=== PATIENT | female | born 1950 ===

== ENCOUNTER 2024-03-09 20:55 | Emergency (ER) | payer MEDICARE, OTHER, SELFPAY ==
[2024-03-09] VITALS (8 sets, daily range): BP systolic 153–170; BP diastolic 73–114; BMI 19.7
--- NOTE | 2024-03-09 21:17 | ED.GENMED ---
Addendum entered and electronically signed by Jaylan Cash Jr., PA-C 03/11/24 10:51:
Blood culture positive this was sent to [facility]. . Room #7 K05
Original Note:
History of Present Illness
General
Chief Complaint: Weakness
Source: patient and family
Exam Limitations: none
Time Seen by Provider: 03/09/24 21:03
Nursing documentation reviewed up to this point in time: agreed with
History of Present Illness
History of Present Illness:
74-year-old female with a past medical history of COPD, lymphoma who presents to the emergency department with her daughter for evaluation of ataxia and confusion. 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 Over
the past week or 2 she has had gradually increasing confusion; she was treated for UTI as an outpatient ultimately had an MRI a few days ago through [facility] which showed recurrence of PAYROLL EXAMINER lymphoma. She was scheduled to follow-up with the
oncologist tomorrow to start treatment through [facility] system however today she has had increased gait difficulty which prompted ER visit. Family noticed that patient had a stumble into the wall and slid down onto her bottom at around 4 PM
and since then has not been able to walk due to discoordination/weakness. They have not noticed any facial droop, speech issues aside from confusion which has been gradual x 2 weeks. Patient is limited as a historian due to her confusion. She
denies any headache or neck pain, back pain, chest pain or any other symptoms. She is not on any blood thinners per family.
Review of Systems
Review of Systems
Unable to obtain full review of systems at this time due to: other (Confusion)
All Other Systems: Not applicable
Phy Exam
Physical Exam
Physical Exam:
General: Awake, alert, oriented x1, difficulty with complex commands but follows simple commands; no acute distress
Head: Normocephalic, atraumatic
Eyes: Conjunctiva normal, EOMI, pupils equal round and reactive to light bilaterally
Throat: Airway intact, handling secretions
Neck: Trachea midline, supple without meningismus
Lungs: Clear to auscultation bilaterally, no wheezing, rales, rhonchi
Heart: Regular rate and rhythm, no murmurs, gallops, or rubs
Abd: Soft, non distended, nontender
Neuro: Cranial nerves grossly intact, speech fluid, unable to test limb ataxia as patient is having difficulty with two-step commands; she has weakness right upper extremity, right lower extremity; motor and sensory intact left side
Extremities: No edema in extremities, warm and well-perfused
Scores
NIH Stroke Score
Level of Consciousness: 0 - Alert
LOC Questions: 2-Neither correct
LOC Commands: 1-Performs one correctly
Best Horizontal Gaze: 0-Normal
Visual Jones: 0=Normal, no visual loss
Facial Palsy: 0=Normal, symmetrical
Motor - Right Arm: 2=Partial vs. gravity
Motor - Left Arm: 0=No drift 10 seconds
Motor - Right Le-Drift < 5 seconds
Motor - Left Le-Drift < 5 seconds
Limb Ataxia: 0-Absent
Sensation: 0-Normal
Best Language: 1-Mild aphasia
Dysarthria: 0-Normal
Extinction and Inattention: 0-No abnormality
Total Score:: 8
Thrombolytic Contraindication
Inclusion and Exclusion criteria reviewed: Yes
Reasons for NON-Tx with Thrombolytics ABSOLUTE Exclusions: Intra-axial intracranial neoplasm
Heart Failure Risk
Heart Failure Risk Score: Not Applicable
Heart Score for Chest Pain Patients
STEMI patient?: Not applicable
Withdrawal Assessment of Alcohol
Withdrawal Assessment Completed?: Not applicable
Course
Orders/Labs/Results
Orders:
Orders
03/09/24 21:06
Electrocardiogram (*1) Urgent
Reason for Study: TIA/Stroke
EKG- Treatment ONCE
03/09/24 21:17
CT HEAD STROKE ALERT W/o Cont Urgent
Comment:
Reason For Exam: ataxia, confusion; h/o PAYROLL EXAMINER lymphoma
03/09/24 21:19
Basic Metabolic Panel Urgent
Complete Blood Count/With Diff Urgent
03/09/24 21:22
PT/INR [Prothrombin Time] Urgent
PTT Urgent
03/09/24 23:06
Dexamethasone Sod Phosphate [Decadron] 10 mg IV NOW STA
03/09/24 23:25
Acetaminophen [Tylenol] 650 mg .ROUTE .STK-MED ONE
03/09/24 23:28
Acetaminophen [Tylenol] 650 mg PO NOW STA
03/09/24 23:46
COVID-19 Antigen Urgent
Source: Nasal Swab
Urinalysis Reflex To Culture Urgent
Blood Culture Q30M
RAHEEL Source: Blood/Venous
Specimen Description:
Influenza A+B Rapid Molecular Urgent
RAHEEL Source: Nasal Swab
Specimen Description:
CR Chest Portable - 1 View Urgent
Comment:
Reason For Exam: fever
Reason Study Needs to be Portable: Unable to Transport
03/10/24 00:16
Blood Culture Q30M
RAHEEL Source: Blood/Venous
Specimen Description:
Abnormal Lab Results
03/09/24 03/09/24
21:17 21:19
WBC 13.2 H 10^3/uL
(4.8-10.8)
RBC 4.14 L 10^6/uL
(4.20-5.40)
MCH 33.3 H pg
(27.0-31.0)
Absolute Neuts (auto) 10.6 H 10^3/uL
(1.4-6.5)
Absolute Monos (auto) 1.2 H 10^3/uL
(0.1-0.6)
Neutrophils % 80.4 H %
(42.2-75.2)
Lymphocytes % 9.7 L %
(20.5-51.1)
Sodium 131 L mmol/L
(135-145)
BUN 19 H mg/dl
(7-17)
Glucose 127 H mg/dl
(70-99)
POC Glucose 128 H mg/dl
(70-99)
03/09/24 21:19
03/09/24 21:19
Vital Signs
Initial and Last Documented VS:
Initial Vital Signs
Temp Pulse Resp BP Pulse Ox
37.9 C 100 22 162/104 97
03/09/24 20:58 03/09/24 20:58 03/09/24 20:58 03/09/24 20:58 03/09/24 20:58
Last Documented Vital Signs
Temp Pulse Resp BP Pulse Ox
38.0 C H 100 19 169/85 97
03/09/24 22:46 03/09/24 23:42 03/09/24 23:42 03/09/24 23:30 03/09/24 23:42
MDM/Problems Addressed
Differential Diagnosis Includes:
Brain mass with worsening edema, brain bleed, stroke, seizure
MDM/Problems Addressed:
74-year-old female presents with worsening confusion over the past few weeks now with significant gait difficulty/ataxia and minor fall today. Hypertensive, mild tachycardia, vital signs otherwise unremarkable. Physical exam as above. Stroke
alert called on arrival. Will send for a CT head. Check labs including a CBC and a CMP. Check EKG. Case discussed with neurology�known history of PAYROLL EXAMINER lymphoma would be contraindication to TNK. Will monitor closely reassess after the above.
CT called back by radiology: Large amount of extensive diffuse confluent periventricular and subcortical white matter events diminished attenuation involving the entire left cerebral hemisphere differential could include white matter edema and/or
gliosis from prior therapeutic intervention. Nodular troy matter versus mass in the left parietal lobe. Mild extrinsic compression of the body left lateral ventricle with approximately 2 mm midline shift to the right but no herniation. No prior
studies available for comparison here. Patient receives care at [facility], will call transfer center there to discuss results and potentially transfer.
Discussed with neuro ICU and hospitalist at [facility] and patient was accepted for transfer by Dr. Tomasa Carpenter. Continue to monitor pending transport.
Patient spiked fever here. She has been recently treated for UTI. She did have slight leukocytosis on her labs. Will add urinalysis, chest x-ray, viral swabs, lactate/blood cultures. Treat with Tylenol. Continue to monitor.
Chronic conditions affecting care:
Lymphoma
Acute Exacerbation and/or Progression of Chronic Illness:
Acutely hypertensive
Acute Exacerbation and/or Progression of Chronic Illness: HTN
*Radiology
Radiology exam reviewed: preliminary read by ED provider and radiology read reviewed
*Pulse Oximetry
Patient hypoxic: no
*Critical Care Note
Total Time (30-74mins, 75-104mins- exclusive of procedures): Not Applicable
Data Reviewed
Source: patient and family
Patient Management
Discussion with other providers: Manager Cardiac Cath (Discussed with neurology) and Radiologist (Discussed with radiologist)
Escalation/DeEscalation of care consider admission/obs:
Admission indicated�transfer
ED Attending Note
-
Portions of this chart may have been created with voice recognition software.� Occasional wrong word or��sound alike� substitutions may have occurred due to the inherent limitations of voice recognition software.
Discharge Plan
Departure
Patient Disposition: Acute Care Hospital
Date of Disposition: 03/09/24
Time of Disposition: 21:54
Discharge Problem:
Vasogenic brain edema, Brain mass
Prescriptions:
No Action
No Current Medications
0
Referrals:
JARETH LARA [Other]
Hospital Transfer
Other hospital: [facility]
I certify that the patient requires transfer: Yes
Discussed case with accepting physician: Dr. Carpenter
Reason for transfer: specialties available and continuity of care PCP
Interventions
Interventions:
*Risk Screen - Suicide Last Done: 03/09/24 20:58
*General Assessment Last Done: 03/09/24 21:37
*Neglect/Abuse Screening Last Done: 03/09/24 20:58
*ED COVID-19 Vaccine History Last Done: 03/09/24 21:37
ED- Pulmonary Assessment Last Done: 03/09/24 21:39
ED- Neurological Assessment Last Done: 03/09/24 21:39
ED-Musculoskeletal Assessment Last Done: 03/09/24 21:39
ED-Female Genitourinary Assessment Last Done: 03/09/24 21:39
ED- Cardiac Assessment Last Done: 03/09/24 21:39
ED Swallowing Screen Last Done: 03/09/24 22:02
Discharge Date and Time
Print Language: FAROESE
[2024-03-09 21:18] LABS: Glucose - Point of Care 128 mg/dl (70-99)
[2024-03-09 21:25] LABS: % Basophils 0.4 % (0-2); % Eosinophils 0.3 % (0-6); % Immature Granulocytes 0.2 % (0-0.5); % Lymphocytes 9.7 % (20.5-51.1); % Neutrophils 80.4 % (42.2-75.2); Absolute Basophils 0.1 10^3/uL (0-0.2); Absolute Lymphocytes 1.3 10^3/uL (1.2-3.4); Absolute Monocytes 1.2 10^3/uL (0.1-0.6); Absolute Neutrophils 10.6 10^3/uL (1.4-6.5); Hematocrit 39.5 % (37.0-47.0); Hemoglobin 13.8 g/dL (12.0-16.0); Mean Corp Hgb Conc. 34.9 g/dL (33.0-37.0); Mean Corpuscular Hgb 33.3 pg (27.0-31.0); Mean Corpuscular Volume 95.4 fL (81.0-99.0); Mean Platelet Volume 8.9 fL (7.4-10.4); Nucleated Red Blood Cells % 0 %; Platelet Count 244 10^3/uL (130-400); Red Blood Cell Count 4.14 10^6/uL (4.20-5.40); Red Cell Dist. Width 12.8 % (11.5-14.5); White Blood Cell Count 13.2 10^3/uL (4.8-10.8)
[2024-03-09 21:42] LABS: APTT 27.5 Sec (23.4-35.0); INR 1.08; PT 14.3 Sec (11.4-14.6)
[2024-03-09 21:58] LABS: Blood Urea Nitrogen 19 mg/dl (7-17); Calcium 9.5 mg/dl (8.4-10.2); Carbon Dioxide 23 mmol/L (22-30); Chloride 98 mmol/L (98-107); Estimated Creatinine Clearance 53 ml/min; Glucose 127 mg/dl (70-99); Sodium 131 mmol/L (135-145); eGFR > 60.00
[2024-03-09] MEDS: TYLENOL 650 MG PO (23:29)
[2024-03-09] MEDS: DECADRON 10 MG IV (23:33)
[2024-03-10] VITALS: BP 154/72
[2024-03-10 00:23] LABS: COVID-19 Antigen Negative (Negative)
[2024-03-10 00:30] VITALS: BP 150/85
[2024-03-10 00:33] LABS: Urine Albumin Negative (Neg - Trace); Urine Bilirubin Negative (Negative); Urine Character Clear (Clear); Urine Color Yellow; Urine Glucose Negative (Negative); Urine Ketone Negative (Negative); Urine Leukocyte Negative (Negative); Urine Nitrite Negative (Negative); Urine Occult Blood Negative (Negative); Urine Specific Gravity 1.015 (<1.030); Urine Urobilinogen Negative (Neg - 1+)
[2024-03-10 01:00] VITALS: BP 130/79
== END 2024-03-10 01:21 | disposition short-term general hospital (02) ==
LOC: EMR 20:55
PROVIDERS: EMERGENCY PHYSICIAN Emergency Medicine
DX: G93.6 Cerebral edema (principal); R22.0 Localized swelling, mass and lump, head; R53.1 Weakness; R41.0 Disorientation, unspecified; R26.2 Difficulty in walking, not elsewhere classified; Z11.52 Encounter for screening for COVID-19; J44.9 Chronic obstructive pulmonary disease, unspecified; Z87.440 Personal history of urinary (tract) infections; Z85.72 Personal history of non-Hodgkin lymphomas
CPT/HCPCS: 99285; 96374; 51701; 70450; 71045; 80048; 81003; 82962; 85025; 85610; 85730; 87040; 87150; 87205; 87502; 87811; 93005